=== PATIENT | female | born 1990 | race Caucasian/White ===

== ENCOUNTER 2023-04-19 20:05 | Emergency (ER) | payer OTHER ==
[~2023-04-19] VITALS: Ht 162.6 cm; Wt 79.4 kg
[2023-04-19 20:05] VITALS: BP 120/83; PULSE 81; RESP 17; TEMP 97.8; O2SAT 98
[2023-04-19 20:25] VITALS: TEMP 97.8
[2023-04-19] MEDS ORDERED: ACETAMINOPHEN EXTRA STRENGTH 500 MG TAB PO ONE (22:45)
[2023-04-19] MEDS ORDERED: ACET-10509 PO (23:44)
[2023-04-20 00:32] VITALS: BP 115/70; PULSE 95; RESP 20; O2SAT 98
== END 2023-04-20 00:25 | disposition home or self-care (01) ==
LOC: EDBD 20:05 → MED 20:05
DX: S20.219A Contusion of unspecified front wall of thorax, initial encounter (principal); O9A.212 Injury, poisoning and certain other consequences of external causes complicating pregnancy, second trimester; Z3A.16 16 weeks gestation of pregnancy; Z79.899 Other long term (current) drug therapy; Z98.890 Other specified postprocedural states; V49.59XA Passenger injured in collision with other motor vehicles in traffic accident, initial encounter; Y93.89 Activity, other specified; Y92.89 Other specified places as the place of occurrence of the external cause; Y99.8 Other external cause status
CPT/HCPCS: 71045; 76801; 93005; 99285; Q0092